=== PATIENT | male | born 1985 | race Caucasian/White ===

== ENCOUNTER 2018-08-26 13:17 | Emergency (ER) | payer OTHER ==
[~2018-08-26] VITALS: Ht 170.2 cm; Wt 69.0 kg
== END 2018-08-26 15:23 | disposition home or self-care (01) ==
LOC: ED 13:17
DX: J02.8 Acute pharyngitis due to other specified organisms (principal); Z88.1 Allergy status to other antibiotic agents
CPT/HCPCS: 99282

== ENCOUNTER 2019-01-01 21:12 | Emergency (ER) | payer OTHER ==
[~2019-01-01] VITALS: Ht 170.2 cm; Wt 72.6 kg
== END 2019-01-01 22:18 | disposition home or self-care (01) ==
LOC: ED 21:12
DX: S80.02XA Contusion of left knee, initial encounter (principal); Y04.8XXA Assault by other bodily force, initial encounter; Z88.1 Allergy status to other antibiotic agents
CPT/HCPCS: 73560; 99283-25

== ENCOUNTER 2021-07-27 19:37 | Emergency (ER) | payer OTHER ==
[~2021-07-27] VITALS: Ht 170.2 cm; Wt 72.6 kg
--- OUTSIDE RECORDS SUMMARY | 2021-07-27 19:40 | XMS ---
PreManage Notification: ASTRID PETTY Security Third Officer Events No recent Security Events currently on file CRITERIA MET - PDMP CARE PROVIDERS [facility] Current PHONE: [phone] Declan has no Care Guidelines for this patient. EPadmini VISIT COUNT (12 MO.) 1 MIRIAN Jamil TOTAL 1 NOTE: Visits indicate total known visits. ED/UCC VISIT TRACKING (12 MO.) 07/27/2021 19:37 [facility] [place] TYPE: Emergency COMPLAINT: - FINGER LACERATION INPATIENT VISIT TRACKING (12 MO.) No inpatient visits to display in this time frame [id number]
[2021-07-27] MEDS ORDERED: VOGELXO75 GM (19:54)
[2021-07-27] MEDS ORDERED: NP THYROID60 MG (19:54)
[2021-07-27] MEDS ORDERED: ARIMIDEX1 MG PO (19:54)
== END 2021-07-27 20:25 | disposition home or self-care (01) ==
LOC: ED 19:37
DX: S61.211A Laceration without foreign body of left index finger without damage to nail, initial encounter (principal); Z88.8 Allergy status to other drugs, medicaments and biological substances; Z79.899 Other long term (current) drug therapy; W26.0XXA Contact with knife, initial encounter
CPT/HCPCS: 99282